=== PATIENT | male | born 1975 | race Hispanic/Latino ===

== ENCOUNTER 2017-12-20 02:16 | Emergency (ER) | payer OTHER ==
[2017-12-20] MEDS ORDERED: NA CHLORIDE 0.9% 1,000 ML ONE (02:45)
[2017-12-20] MEDS ORDERED: MORPHINE 4 MG/ML SYR ONE (02:45)
[2017-12-20] MEDS ORDERED: ONDANSETRON 4 MG/2 ML VIAL ONE (02:45)
[2017-12-20 03:06] LABS: Urine Bacteria <20 /HPF (NONE SEEN); Urine Culture Reflex Order NOT NEEDED; Urine RBC NONE SEEN /HPF (NONE SEEN)
[2017-12-20 03:11] LABS: Absolute Lymphocytes (CBC) 4.1 K/uL (0.7-4.9); Absolute Monocytes 0.9 K/uL (0.1-1.3); Absolute Neutrophil 4.5 K/uL (1.8-8.0); Basophils % 0.7 % (0-1.3); Eosinophils % 3.5 % (0-4.4); Hematocrit 43.9 % (39.6-49.0); Lymphocytes % 41.1 % (15.3-44.8); MCH 28.8 pg (27.0-35.0); MCV 84.1 fL (80-100); MPV 8.7 fL (7.6-11.3); Monocytes % 8.7 % (3.3-12.3); RBC Red Blood Cell Count 5.22 M/uL (4.33-5.43)
[2017-12-20 03:23] LABS: Bicarbonate 28 mEq/L (21-31); Glucose Level 135 mg/dL (65-120); Lipase 35 U/L (22-51); Potassium 3.7 mEq/L (3.6-5.0); Sodium Level 137 mEq/L (135-145)
[2017-12-20 03:34] LABS: ALT/SGPT 46 IU/L (10-60); AST/SGOT 23 IU/L (10-42); Albumin 3.9 g/dL (3.2-5.5); Alkaline Phosphatase 59 IU/L (42-121); Amylase Level 72 U/L (28-100); BUN Blood Urea Nitrogen 17 mg/dL (6-20); Bilirubin Direct < 0.1 mg/dL (0-0.2); Bilirubin Total < 0.2 mg/dL (0.3-1.2); Protein, Total 7.2 g/dL (6.0-8.3)
[2017-12-20 03:39] LABS: Urine Blood NEGATIVE (NEG); Urine Glucose NEGATIVE (NEG); Urine Protein NEGATIVE (NEG); Urine Specific Gravity 1.025 (1.005-1.030); Urine pH 6.5 (5.0-7.0)
--- NOTE | 2017-12-20 05:25 | EDPHYS ---
Physician Documentation [facility] Name: Bert Koroma Jr Age: 42 yrs Sex: Male : 1975 Arrival Date: 12/20/2017 Time: 02:20 Bed 17 Private MD: ED Physician Sid Arreola HPI: 12/20 02:43 This 42 yrs old Male presents to ER via Ambulatory with complaints of Back pkl Pain, Low Back Pain, SIDES HURT. 02:43 The patient presents with pain that is acute. The symptoms are located in the low back. pkl Onset: The symptoms/episode began/occurred today. The pain radiates to the pain radiating to front of abdomen. Associated signs and symptoms: The patient has no apparent associated signs or symptoms. Historical: - Allergies: 02:32 No Known Allergies; aa1 - Home Meds: 02:32 None [Active]; aa1 - PMHx: 02:32 None; aa1 - PSHx: 02:32 None; aa1 - Immunization history:: Flu vaccine is not up to date. - Social history:: Smoking status: Patient uses tobacco products, smokes one-half pack cigarettes per day. ROS: 02:43 Eyes: Negative for injury, pain, redness, and discharge, ENT: Negative for injury, pkl pain, and discharge, Neck: Negative for injury, pain, and swelling, Cardiovascular: Negative for chest pain, palpitations, and edema, Respiratory: Negative for shortness of breath, cough, wheezing, and pleuritic chest pain. 02:43 Abdomen/GI: Positive for abdominal pain, of the right upper quadrant, left upper quadrant, right lower quadrant and left lower quadrant. 02:43 Back: Positive for pain at rest, of the lower back. 02:43 : Negative for urinary symptoms. 02:43 MS/extremity: Negative for acute changes. 02:43 Skin: Negative for rash. 02:43 Neuro: Negative for altered mental status. Exam: 02:43 Head/Face: Normocephalic, atraumatic. Eyes: Pupils equal round and reactive to light, pkl extra-ocular motions intact. Lids and lashes normal. Conjunctiva and sclera are non-icteric and not injected. Cornea within normal limits. Periorbital areas with no swelling, redness, or edema. ENT: Nares patent. No nasal discharge, no septal abnormalities noted. Tympanic membranes are normal and external auditory canals are clear. Oropharynx with no redness, swelling, or masses, exudates, or evidence of obstruction, uvula midline. Mucous membranes moist. Neck: Trachea midline, no thyromegaly or masses palpated, and no cervical lymphadenopathy. Supple, full range of motion without nuchal rigidity, or vertebral point tenderness. No Meningismus. Chest/axilla: Normal chest wall appearance and motion. Nontender with no deformity. No lesions are appreciated. Cardiovascular: Regular rate and rhythm with a normal S1 and S2. No gallops, murmurs, or rubs. Normal PMI, no JVD. No pulse deficits. Respiratory: Lungs have equal breath sounds bilaterally, clear to auscultation and percussion. No rales, rhonchi or wheezes noted. No increased work of breathing, no retractions or nasal flaring. 02:43 Abdomen/GI: Bowel sounds: normal, Palpation: abdomen is soft and non-tender, in all quadrants. 02:43 Back: pain, that is moderate, of the lower back. 02:43 : Exam negative for acute changes. 02:43 Musculoskeletal/extremity: Exam is negative for acute changes. 02:43 Skin: Exam negative for rash. 02:43 Neuro: Orientation: is normal, Mentation: is normal, Cranial nerves: grossly normal, Motor: is normal. Vital Signs: 02:32 BP 164 / 98; Pulse 85; Resp 18; Temp 98.4; Pulse Ox 97% on R/A; Weight 104.33 kg; aa1 Height 5 ft. 3 in. (160.02 cm); Pain 10/10; 03:35 BP 134 / 86; Pulse 80; Resp 16; Pulse Ox 95% ; ao 04:30 BP 136 / 84; Pulse 78; Resp 16; Pulse Ox 98% ; ao 05:41 BP 133 / 84; Pulse 74; Resp 18; Pulse Ox 100% ; Pain 0/10; ao 02:32 Body Mass Index 40.74 (104.33 kg, 160.02 cm) aa1 MDM: 02:23 Patient medically screened. pkl 05:24 Data reviewed: vital signs, nurses notes, lab test result(s), radiologic studies, CT pkl scan. 12/20 02:42 Order name: Urine Dipstick--Ancillary (enter results); Complete Time: 04:12 mw2 12/20 02:42 Order name: Amylase, Serum; Complete Time: 04:12 pkl 12/20 02:42 Order name: Basic Metabolic Panel; Complete Time: 04:12 pkl 12/20 02:42 Order name: CBC with Diff; Complete Time: 04:12 pkl 12/20 02:42 Order name: Hepatic Function; Complete Time: 04:12 pkl 12/20 02:42 Order name: Lipase; Complete Time: 04:12 pkl 12/20 02:42 Order name: Urine Microscopic Only; Complete Time: 04:12 pkl 12/20 02:42 Order name: IV Saline Lock; Complete Time: 03:00 pkl 12/20 02:42 Order name: Labs collected and sent; Complete Time: 03:00 pkl 12/20 02:47 Order name: CT Abd/Pelvis - W/Contrast pkl 12/20 02:42 Order name: Urine Dipstick-Ancillary (obtain specimen); Complete Time: 02:46 pkl Administered Medications: 02:55 Drug: Zofran 4 mg Route: IVP; Site: right antecubital; ao 05:44 Follow up: Response: No adverse reaction ao 02:57 Drug: morphine 4 mg Route: IVP; Site: right antecubital; ao 05:44 Follow up: Response: No adverse reaction; Pain is decreased ao 03:00 Drug: NS 0.9% 1000 ml Route: IV; Rate: 1000 ml; Site: right antecubital; ao 05:44 Follow up: IV Status: Completed infusion; IV Intake: 1000ml ao Disposition: 12/20/17 05:25 Discharged to Home. Impression: Acute back pain. - Condition is Stable. - Prescriptions for Ultram 50 mg Oral Tablet - take 1 tablet by ORAL route every 8 hours As needed; 20 tablet. Cyclobenzaprine 10 mg Oral Tablet - take 1 tablet by ORAL route 2 times per day As needed; 20 tablet. - Medication Reconciliation Form, Thank You Letter, Antibiotic Education, Prescription Opioid Use form. - Follow up: Private Physician; When: 2 - 3 days; Reason: Re-evaluation by your physician. - Problem is new. - Symptoms have improved. Signatures: Dispatcher [employer] Montserrat Moore RN RN aa1 Sid Arreola MD MD pkl Tejas Reynoso, RN RN ao Corrections: (The following items were deleted from the chart) 03:04 02:43 Creatinine for Radiology+C.LAB.BRZ ordered. EDMO EDMS 05:43 05:25 12/20/2017 05:25 Discharged to Home. Impression: Acute back pain. Condition is ao Stable. Forms are Medication Reconciliation Form, Thank You Letter, Antibiotic Education, Prescription Opioid Use. Follow up: Private Physician; When: 2 - 3 days; Reason: Re-evaluation by your physician. Problem is new. Symptoms have improved. pkl
--- NOTE | 2017-12-20 05:25 | ER ---
Nurse's Notes [facility] Name: Bert Koroma Jr Age: 42 yrs Sex: Male : 1975 Arrival Date: 12/20/2017 Time: 02:20 Bed 17 Private MD: Diagnosis: Acute back pain Presentation: 12/20 02:31 Presenting complaint: Patient states: low back pain that radiates to abdomen since aa1 yesterday morning. Denies N/V. Transition of care: patient was not received from another setting of care. Onset of symptoms was December 19, 2017. Initial Sepsis Screen: Does the patient meet any 2 criteria? No. Patient's initial sepsis screen is negative. Does the patient have a suspected source of infection? No. Patient's initial sepsis screen is negative. Care prior to arrival: None. 02:31 Method Of Arrival: Ambulatory aa1 02:31 Acuity: ANA 3 aa1 Historical: - Allergies: 02:32 No Known Allergies; aa1 - Home Meds: 02:32 None [Active]; aa1 - PMHx: 02:32 None; aa1 - PSHx: 02:32 None; aa1 - Immunization history:: Flu vaccine is not up to date. - Social history:: Smoking status: Patient uses tobacco products, smokes one-half pack cigarettes per day. Screenin:34 Abuse screen: Denies threats or abuse. Denies injuries from another. Nutritional ao screening: No deficits noted. Tuberculosis screening: No symptoms or risk factors identified. Fall Risk None identified. Assessment: 02:31 General: Appears in no apparent distress. comfortable, Behavior is cooperative. Pain: ao Complains of pain in right flank radiating to the back Pain does not radiate. Neuro: Level of Consciousness is awake, alert, obeys commands, Oriented to person, place, time, situation, Appropriate for age Moves all extremities. Speech is normal, Facial symmetry appears normal, Pupils are PERRLA. Cardiovascular: Capillary refill < 3 seconds Patient's skin is warm and dry. Respiratory: Airway is patent Respiratory effort is even, unlabored, Respiratory pattern is regular, symmetrical. GI: Abdomen is round obese. : No signs and/or symptoms were reported regarding the genitourinary system. EENT: No signs and/or symptoms were reported regarding the EENT system. Derm: Skin is normal, Skin temperature is warm. Musculoskeletal: No signs and/or symptoms reported regarding the musculoskeletal system. Range of motion: intact in all extremities. 03:35 Reassessment: Patient appears in no apparent distress at this time. Patient and/or ao family updated on plan of care and expected duration. Pain level reassessed. Patient is alert, oriented x 3, equal unlabored respirations, skin warm/dry/pink. 03:37 Reassessment: Patient done with contrast at 0310. CT department was notified. ao 04:36 Reassessment: Patient appears in no apparent distress at this time. Patient and/or ao family updated on plan of care and expected duration. Pain level reassessed. Patient is alert, oriented x 3, equal unlabored respirations, skin warm/dry/pink. Patient left for CT scan. 05:41 Reassessment: Patient DC home. DC instructions given and patient agree with the POC and ao to follow up with PCP. Vital Signs: 02:32 BP 164 / 98; Pulse 85; Resp 18; Temp 98.4; Pulse Ox 97% on R/A; Weight 104.33 kg; aa1 Height 5 ft. 3 in. (160.02 cm); Pain 10/10; 03:35 BP 134 / 86; Pulse 80; Resp 16; Pulse Ox 95% ; ao 04:30 BP 136 / 84; Pulse 78; Resp 16; Pulse Ox 98% ; ao 05:41 BP 133 / 84; Pulse 74; Resp 18; Pulse Ox 100% ; Pain 0/10; ao 02:32 Body Mass Index 40.74 (104.33 kg, 160.02 cm) aa1 ED Course: 02:20 Patient arrived in ED. es 02:23 Sid Arreola MD is Attending Physician. pkl 02:28 Tejas Reynoso, J CARLOS is Primary Nurse. ao 02:31 Triage completed. aa1 02:32 Arm band placed on right wrist. Patient placed in an exam room, on a stretcher. aa1 02:34 Patient has correct armband on for positive identification. Pulse ox on. NIBP on. ao 02:55 Oral contrast given. cw1 03:00 Inserted saline lock: 20 gauge in right antecubital area, using aseptic technique. ao Blood collected. 03:43 EKG done, by ED staff, reviewed by Sid Arreola MD. eb 04:[address] via wheelchair. cw1 04:39 CT completed. Patient tolerated procedure well. Patient moved back from CT. vm2 04:46 CT Abd/Pelvis - W/Contrast In Process Unspecified. EDMS 05:40 No provider procedures requiring assistance completed. IV discontinued, intact, ao bleeding controlled, No redness/swelling at site. Pressure dressing applied. Administered Medications: 02:55 Drug: Zofran 4 mg Route: IVP; Site: right antecubital; ao 05:44 Follow up: Response: No adverse reaction ao 02:57 Drug: morphine 4 mg Route: IVP; Site: right antecubital; ao 05:44 Follow up: Response: No adverse reaction; Pain is decreased ao 03:00 Drug: NS 0.9% 1000 ml Route: IV; Rate: 1000 ml; Site: right antecubital; ao 05:44 Follow up: IV Status: Completed infusion; IV Intake: 1000ml ao Intake: 05:44 IV: 1000ml; Total: 1000ml. ao Outcome: 05:25 Discharge ordered by . catherine 05:40 Discharged to home ambulatory. ao 05:40 Condition: stable 05:40 Discharge instructions given to patient, Instructed on discharge instructions, follow up and referral plans. Demonstrated understanding of instructions, follow-up care, Prescriptions given X 2. 05:43 Patient left the ED. ao Signatures: Dispatcher [employer] Montserrat Moore, RN RN Sid Newman MD MD pkl Salyer, Edna es Woodley, Crystal cw1 Tejas Reynoso RN RN ao McGuire, Victoria 2 Frida Richey
--- NOTE | 2017-12-20 11:23 | RAD REPORT ---
EXAM DESCRIPTION: CT - Abdomen Pelvis W Contrast - 12/20/2017 6:51 am CLINICAL HISTORY: Abdominal pain with nausea. COMPARISON: August 2016 TECHNIQUE: Computed axial tomography of the abdomen pelvis was obtained. 100 cc Isovue-300 was admin istered intravenously. Oral contrast was not requested which limits evaluation of bowel. A preliminary report was generated by [facility] in reviewed prior to this dictation All CT scans are performed using dose optimization technique as appropriate and may include automated exposure control or mA/KV adjustment according to patient size. FINDINGS: The liver, spleen, pancreas, adrenal and kidneys appear unremarkable. There is no evidence of diverticulitis. The appendix is normal. Small bilateral inguinal hernias contain fat IMPRESSION: No acute abnormality is displayed.
== END 2017-12-20 05:43 | disposition home or self-care (01) ==
LOC: ER 02:16
DX: M54.5 Low back pain (principal); F17.210 Nicotine dependence, cigarettes, uncomplicated
CPT/HCPCS: 36415; 74177; 80048; 80076; 81003; 81015; 82150; 83690; 85025; 96361; 96374; 96375; 99285; J2405; J7030; Q9967

== ENCOUNTER 2018-03-04 07:16 | Emergency (ER) | payer OTHER ==
[2018-03-04] MEDS ORDERED: IBUPROFEN 400 MG TAB ONE (07:49)
--- NOTE | 2018-03-04 08:20 | EDPHYS ---
Physician Documentation [facility] Name: Bert Koroma Jr Age: 42 yrs Sex: Male : 1975 Arrival Date: 03/04/2018 Time: 07:20 Bed 16 Private MD: None, None ED Physician Ned Negro HPI: 03/04 07:46 This 42 yrs old Male presents to ER via Ambulatory with complaints of Wrist kdr Injury. 07:46 The patient or guardian reports decreased range of motion, injury, pain, tenderness, kdr weakness. The complaints affect the left wrist diffusely. Context: The problem was sustained at home, resulted from Lifting the back of his truck when it twisted and fell, twisting his left wrist back. Now he is unable to bend his wrist back. Onset: The symptoms/episode began/occurred suddenly, just prior to arrival. Modifying factors: The symptoms are alleviated by nothing, the symptoms are aggravated by movement. Associated signs and symptoms: The patient has no apparent associated signs or symptoms. The patient has not experienced similar symptoms in the past. The patient has not recently seen a physician. Historical: - Allergies: 07:34 No Known Allergies; rb1 - Home Meds: 07:34 None [Active]; rb1 - PMHx: 07:34 None; rb1 - PSHx: 07:34 None; rb1 - Immunization history:: Adult Immunizations up to date. - Social history:: Smoking status: Patient uses tobacco products, smokes one-half pack cigarettes per day. - Ebola Screening: : Patient negative for fever greater than or equal to 101.5 degrees Fahrenheit, and additional compatible Ebola Virus Disease symptoms. ROS: 07:46 Constitutional: Negative for fever, chills, and weight loss, Eyes: Negative for injury, kdr pain, redness, and discharge, ENT: Negative for injury, pain, and discharge, Neck: Negative for injury, pain, and swelling, Cardiovascular: Negative for chest pain, palpitations, and edema, Respiratory: Negative for shortness of breath, cough, wheezing, and pleuritic chest pain, Abdomen/GI: Negative for abdominal pain, nausea, vomiting, diarrhea, and constipation, Back: Negative for injury and pain, : Negative for injury, bleeding, discharge, and swelling, Skin: Negative for injury, rash, and discoloration, Neuro: Negative for headache, weakness, numbness, tingling, and seizure activity. Psych: Negative for depression, anxiety, suicide ideation, homicidal ideation, and hallucinations, Allergy/Immunology: Negative for hives, rash, and allergies, Endocrine: Negative for neck swelling, polydipsia, polyuria, polyphagia, and marked weight changes, Hematologic/Lymphatic: Negative for swollen nodes, abnormal bleeding, and unusual bruising. 07:46 MS/extremity: Positive for injury or acute deformity, decreased range of motion, pain, tenderness. Exam: 07:46 Constitutional: This is a well developed, well nourished patient who is awake, alert, kdr and in no acute distress. Head/Face: Normocephalic, atraumatic. 07:46 Musculoskeletal/extremity: Extremities: grossly normal except: ROM: limited active range of motion, limited passive range of motion, in the left wrist. Vital Signs: 07:25 Pulse 81; Resp 20; Temp 98.1(O); Pulse Ox 97% on R/A; Weight 104.33 kg (R); Height 5 rb1 ft. 3 in. (160.02 cm) (R); Pain 10/10; 08:19 BP 127 / 93; Pulse 74; Resp 19; Pulse Ox 96% on R/A; Pain 7/10; rb1 07:25 Body Mass Index 40.74 (104.33 kg, 160.02 cm) rb1 MDM: 07:46 Data reviewed: vital signs, nurses notes, radiologic studies. Counseling: I had a kdr detailed discussion with the patient and/or guardian regarding: the historical points, exam findings, and any diagnostic results supporting the discharge/admit diagnosis, radiology results, the need for outpatient follow up. 08:19 Patient medically screened. kdr 03/04 07:33 Order name: Wrist Left (3 View) XRAY kdr 03/04 07:34 Order name: Splint - Volar Wrist Splint; Complete Time: 08:19 kdr Administered Medications: 07:49 Drug: Ibuprofen 800 mg Route: PO; rb1 08:19 Follow up: Response: No adverse reaction; Pain is decreased rb1 Disposition: 03/04/18 08:19 Discharged to Home. Impression: Sprain of carpal joint of left wrist, Sprain of radiocarpal joint of left wrist. - Condition is Stable. - Discharge Instructions: Wrist Sprain. - Prescriptions for Tramadol 50 mg Oral Tablet - take 1 tablet by ORAL route every 8 hours as needed; 12 tablet. - Medication Reconciliation Form, Thank You Letter form. - Follow up: Private Physician; When: 2 - 3 days; Reason: If symptoms return, Further diagnostic work-up, Recheck today's complaints, Continuance of care, Re-evaluation by your physician. - Problem is new. - Symptoms have improved. Signatures: Dispatcher [employer] EDNed Peter MD MD kdr Barber, Rebecca RN RN rb1 Corrections: (The following items were deleted from the chart) 08:26 08:19 03/04/2018 08:19 Discharged to Home. Impression: Sprain of carpal joint of left rb1 wrist; Sprain of radiocarpal joint of left wrist. Condition is Stable. Forms are Medication Reconciliation Form, Thank You Letter, Antibiotic Education, Prescription Opioid Use. Follow up: Private Physician; When: 2 - 3 days; Reason: If symptoms return, Further diagnostic work-up, Recheck today's complaints, Continuance of care, Re-evaluation by your physician. Problem is new. Symptoms have improved. kdr
--- NOTE | 2018-03-04 08:20 | ER ---
Nurse's Notes [facility] Name: Bert Koroma Jr Age: 42 yrs Sex: Male : 1975 Arrival Date: 03/04/2018 Time: 07:20 Bed 16 Private MD: None, None Diagnosis: Sprain of carpal joint of left wrist;Sprain of radiocarpal joint of left wrist Presentation: 03/04 07:25 Presenting complaint: Patient states: pt. was putting a rear end in his truck when it rb1 swung back and bent his left wrist back. Transition of care: patient was not received from another setting of care. Onset of symptoms was March 04, 2018 at 06:50. Risk Assessment: Do you want to hurt yourself or someone else? Patient reports no desire to harm self or others. Initial Sepsis Screen: Does the patient meet any 2 criteria? No. Patient's initial sepsis screen is negative. Does the patient have a suspected source of infection? No. Patient's initial sepsis screen is negative. Care prior to arrival: None. 07:25 Method Of Arrival: Ambulatory rb1 07:25 Acuity: ANA 3 rb1 Triage Assessment: 07:25 General: Appears in no apparent distress. comfortable, Behavior is calm, cooperative, rb1 Denies. Pain: Complains of pain in left wrist Pain currently is 10 out of 10 on a pain scale. Pain began 30 min ago. Neuro: Level of Consciousness is awake, alert, obeys commands, Oriented to person, place, time, situation. Cardiovascular: Capillary refill < 3 seconds is brisk in bilateral fingers. Respiratory: Airway is patent Respiratory effort is even, unlabored, Respiratory pattern is regular, symmetrical. GI: No signs and/or symptoms were reported involving the gastrointestinal system. : No signs and/or symptoms were reported regarding the genitourinary system. Derm: No signs and/or symptoms reported regarding the dermatologic system. Musculoskeletal: Range of motion: limited in left wrist. Injury Description: Left wrist bent backwards. Historical: - Allergies: 07:34 No Known Allergies; rb1 - Home Meds: 07:34 None [Active]; rb1 - PMHx: 07:34 None; rb1 - PSHx: 07:34 None; rb1 - Immunization history:: Adult Immunizations up to date. - Social history:: Smoking status: Patient uses tobacco products, smokes one-half pack cigarettes per day. - Ebola Screening: : Patient negative for fever greater than or equal to 101.5 degrees Fahrenheit, and additional compatible Ebola Virus Disease symptoms. Screenin:25 Abuse screen: Denies threats or abuse. Nutritional screening: No deficits noted. rb1 Tuberculosis screening: No symptoms or risk factors identified. Fall Risk None identified. Assessment: 07:25 General: See triage assessment. rb1 08:19 Reassessment: Patient appears in no apparent distress at this time. Patient and/or rb1 family updated on plan of care and expected duration. Pain level reassessed. Patient is alert, oriented x 3, equal unlabored respirations, skin warm/dry/pink. Vital Signs: 07:25 Pulse 81; Resp 20; Temp 98.1(O); Pulse Ox 97% on R/A; Weight 104.33 kg (R); Height 5 rb1 ft. 3 in. (160.02 cm) (R); Pain 10/10; 08:19 BP 127 / 93; Pulse 74; Resp 19; Pulse Ox 96% on R/A; Pain 7/10; rb1 07:25 Body Mass Index 40.74 (104.33 kg, 160.02 cm) rb1 ED Course: 07:20 Patient arrived in ED. sb2 07:21 None, None is Private Physician. sb2 07:24 Alison Lake, RN is Primary Nurse. rb1 07:25 Arm band placed on right wrist. rb1 07:25 Patient has correct armband on for positive identification. Bed in low position. Call rb1 light in reach. Side rails up X 1. Pulse ox on. NIBP on. 07:27 Ned Negro MD is Attending Physician. kdr 07:34 Triage completed. rb1 08:00 X-ray completed. Portable x-ray completed in exam room. Patient tolerated procedure jb2 well. 08:02 Wrist Left (3 View) XRAY In Process Unspecified. EDMS 08:25 No provider procedures requiring assistance completed. Patient did not have IV access rb1 during this emergency room visit. Administered Medications: 07:49 Drug: Ibuprofen 800 mg Route: PO; rb1 08:19 Follow up: Response: No adverse reaction; Pain is decreased rb1 Outcome: 08:19 Discharge ordered by . kdr 08:25 Discharged to home ambulatory. rb1 08:25 Condition: stable 08:25 Discharge instructions given to patient, Instructed on discharge instructions, follow up and referral plans. medication usage, Demonstrated understanding of instructions, follow-up care, medications, Prescriptions given X 1. 08:26 Patient left the ED. rb1 Signatures: Dispatcher [employer] EDMS Ned Negro MD MD kdr Buechter, Jesse jb2 Alison Lake, RN RN rb1 Jaye Manzanares2
--- NOTE | 2018-03-04 09:21 | RAD REPORT ---
EXAM DESCRIPTION: RAD - Wrist Left 3 View - 03/04/2018 8:03 am CLINICAL HISTORY: Wrist pain following trauma, hyperextension injury COMPARISON: None. FINDINGS: No fracture is identified. There is no dislocation or periosteal reaction noted. No foreig n body or other soft tissue abnormality. IMPRESSION: Negative left wrist examination.
== END 2018-03-04 08:26 | disposition home or self-care (01) ==
LOC: ER 07:16
DX: S63.512A Sprain of carpal joint of left wrist, initial encounter (principal); X50.0XXA Overexertion from strenuous movement or load, initial encounter; Y93.89 Activity, other specified; Y92.014 Private driveway to single-family (private) house as the place of occurrence of the external cause; S63.522A Sprain of radiocarpal joint of left wrist, initial encounter; F17.210 Nicotine dependence, cigarettes, uncomplicated
CPT/HCPCS: 99284